=== PATIENT | male | born 1985 | race African-American/Black ===

== ENCOUNTER 2016-08-15 13:12 | Emergency (ER) | payer OTHER ==
[~2016-08-15] VITALS: Ht 177.8 cm; Wt 90.7 kg
[~2016-08-15 13:12] MED LIST: KEPPRA XR500 MG PO; PERCOCET 5/3251 TAB PO; TOPROL XL50 MG PO; TYLENOL325 M2 PO; ZESTRIL20 MG PO
--- NOTE | 2016-08-15 13:12 | NUR ---
Patient was BIBA and taken to bed 04.
[2016-08-15 13:14] VITALS: BP 126/79
--- NOTE | 2016-08-15 13:14 | NUR ---
31M BIBA C/O MID-CHEST PAIN, SHARP/STABBING, RADIATES TO LEFT CHEST, RT ABDOMEN, AND BACK X 4 HOURS TODAY; PT C/O NAUSEA, ABDOMEN SOFT, TENDER TO TOUCH, ACTIVE BOWEL SOUNDS X4 QUADRANTS; PT DENIES V/D AT THIS TIME; A&OX4, BL LUNG SOUNDS CLEAR, RR EVEN/UNLABORED, SKIN IS WARM/DRY/INTACT AT THIS TIME; PT NOTED W/ HEALED SCARS TO MID-ABDOMEN FROM COLON SURGERY/RT ABDOMEN FROM GALLBLADDER REMOVAL; STEADY GAIT. PT PLACED IN GOWN & ON MONITOR, RESTING IN BED W/ HOB ELEVATED AND IN LOWEST POSITION; ER MD MADE AWARE OF STATUS. WILL CONTINUE TO MONITOR.
[2016-08-15] MEDS ORDERED: ASPIRIN 325 MG TAB PO ONE (13:30)
[2016-08-15] MEDS ORDERED: NITROGLYCERIN 0.4 MG TAB SL ONE (13:30)
[2016-08-15] MEDS ORDERED: MORPHINE SULFATE 4 MG/ML SYR IVP ONE (13:30)
--- NOTE | 2016-08-15 13:50 | NUR ---
X RAY AT BEDSIDE
[2016-08-15] MEDS ORDERED: HYDROmorphone 1 MG/ML AMP IVP ONE (15:05)
--- NOTE | 2016-08-15 16:00 | NUR ---
Patient to CT via [facility].
--- NOTE | 2016-08-15 16:12 | NUR ---
Maddie olson in ED - 08/15/16 at 1616 by MED1 PT TAKEN TO CT VIA COLLEEN ACCOMPANIED BY SENIOR ENGINEERING SPECIALIST
--- NOTE | 2016-08-15 16:19 | NUR ---
PT RETURN FROM CT. IV SITE L AC SWELLING AND PT C/O PAIN 04/07. NOTIFIED DR COLLINS Addendum: 08/15/16 at 1640 by MED1 IV L AC REMOVED,PRESSURE APPLIED TO SITE TO STOP BLEEDING. WILL CONTINUE TO MONITOR
--- NOTE | 2016-08-15 16:19 | NUR ---
Maddie olson in EDM - 08/15/16 at 1621 by MED1 PT RETURN FROM CT. IV SITE L AC SWELLING AND PT C/O PAIN 04/07. NOTIFIED
[2016-08-15] MEDS ORDERED: NACL 0.9% 1,000 ML IV ONE (16:25)
[2016-08-15] MEDS ORDERED: diphenhydrAMINE 50 MG/ML VIAL IVP ONE (16:25)
--- NOTE | 2016-08-15 16:41 | NUR ---
Patient appears to be resting comfortably in bed. Vital Signs within normal limits. Respirations even and unlabored.WILL CONTINUE TO MONITOR
--- NOTE | 2016-08-15 18:38 | NUR ---
ELEVATED L ARM WITH PILLOW/ APPLIED ICE PER ER MD DR. COLLINS ORDER; SWELLING NOTED TO SITE; NO BLEEDING AT THIS TIME; WILL CONTINUE TO MONITOR.
[2016-08-15] MEDS ORDERED: IBUPROFEN 800 MG TAB PO ONE (18:40)
[2016-08-15] MEDS ORDERED: ACETAMINOPHEN EXTRA STRENGTH 500 MG TAB PO ONE (18:40)
--- NOTE | 2016-08-15 19:05 | NUR ---
IV TO RT FA removed, catheter intact and site benign. Applied folded 4x4 gauze and tape to stop bleeding.
[2016-08-15 19:10] VITALS: BP 118/76
--- NOTE | 2016-08-15 19:10 | NUR ---
Patient discharged with v/s stable. Written and verbal after care instructions given and explained. Patient alert, oriented and verbalized understanding of instructions. Ambulatory with steady gait. All questions addressed prior to discharge. ID band removed. Patient advised to follow up with PMD. Rx of TYLENOL EXTRA STRENGTH, TRAMADOL HYDROCHLORIDE & IBUPROFEN given. Patient educated on indication of medication including possible reaction and side effects. Opportunity to ask questions provided and answered.
== END 2016-08-15 19:10 | disposition home or self-care (01) ==
LOC: MED 13:12
DX: R07.89 Other chest pain (principal); R10.11 Right upper quadrant pain; I10 Essential (primary) hypertension
CPT/HCPCS: 36415; 71010; 71275; 80053; 83690; 83880; 84484; 85025; 85610; 85730; 93005; 96361; 96374; 96375; 99285; J1170; J1200; J2270; J7030; Q0092; Q9967

== ENCOUNTER 2016-08-16 10:12 | Emergency (ER) | payer OTHER ==
[~2016-08-16] VITALS: Ht 175.3 cm; Wt 86.2 kg
--- NOTE | 2016-08-16 10:13 | NUR ---
Patient CAROL SULLIVAN, triaged by RN.
[2016-08-16 10:21] VITALS: BP 132/86
--- NOTE | 2016-08-16 10:27 | NUR ---
TO LOBBY PER ERMD
--- NOTE | 2016-08-16 10:56 | NUR ---
Patient ambulated to bed 8. RN evaluating patient at bedside.
[2016-08-16] MEDS ORDERED: NACL 0.9% 1,000 ML IV SCH (10:58)
--- NOTE | 2016-08-16 10:58 | NUR ---
Dr. King evaluating patient at bedside.
[2016-08-16] MEDS ORDERED: ONDANSETRON 4 MG/2 ML VIAL IVP ONE (11:00)
--- NOTE | 2016-08-16 11:00 | NUR ---
PER PATIENT HAVE BP SHUNT RT.SIDE HEAD DUE TO HYDROCEPHALUS A CHILD,LT. ARM PAIN/SWELLING IV SITE FROM YESTERDAY.CT.ABD. WITH CONTRAST DONE YESTERDAY; DENIES N/V/D; SKIN IS PINK/WARM/DRY; AAOX4 WITH EVEN AND STEADY GAIT; LUNGS CLEAR BL; HR EVEN AND REGULAR; PT DENIES ANY FEVER, CP, SOB, OR COUGH AT THIS TIME; PATIENT STATES PAIN OF 8/10 AT THIS TIME; VSS; PATIENT POSITIONED FOR COMFORT; HOB ELEVATED; BEDRAILS UP X2; BED DOWN. ER MD MADE AWARE OF PT STATUS.
[2016-08-16] MEDS ORDERED: MORPHINE SULFATE 4 MG/ML SYR ONE (11:47)
[2016-08-16] MEDS ORDERED: MORPHINE SULFATE 4 MG/ML SYR IVP ONE (11:50)
--- NOTE | 2016-08-16 12:06 | NUR ---
AAO, COOPERATIVE PATIENT BEING TRANSPORTED TO CT VIA GURNEY BY SAIDA AREVALO
--- NOTE | 2016-08-16 12:30 | NUR ---
AAO PT STILL C/O HEAD ACHE 02/05 DR MCADAMS NOTIFIED
[2016-08-16] MEDS ORDERED: HYDROmorphone 1 MG/ML AMP IVP ONE (12:35)
--- NOTE | 2016-08-16 14:23 | NUR ---
DR MCADAMS NOTIFIED OF PT C/O PAIN 02/05 ASKING AWAITING ORDERS
--- NOTE | 2016-08-16 14:56 | NUR ---
PT C/O HEADACHE 02/05, DR MCADAMS NOTIFIED, HAVE TO WAIT PER DR MCADAMS, AAO PT NOTIFIED
[2016-08-16 15:42] VITALS: BP 137/65
--- NOTE | 2016-08-16 15:42 | NUR ---
Patient discharged with v/s stable. Written and verbal after care instructions given and explained. Patient alert, oriented and verbalized understanding of instructions. Ambulatory with steady gait. All questions addressed prior to discharge. ID band removed. Patient advised to follow up with PMD. Rx of NORCO, KEFLEX given. Patient educated on indication of medication including possible reaction and side effects. Opportunity to ask questions provided and answered.
== END 2016-08-16 15:42 | disposition home or self-care (01) ==
LOC: MED 10:12
PROC: BW28ZZZ Computerized Tomography (CT Scan) of Head (ICD-10-PCS; principal; 2016-08-16)
PROC: 3E033GC Introduction of Other Therapeutic Substance into Peripheral Vein, Percutaneous Approach (ICD-10-PCS; principal; 2016-08-16)
DX: R51 Headache (principal); I80.8 Phlebitis and thrombophlebitis of other sites; I10 Essential (primary) hypertension; Q03.9 Congenital hydrocephalus, unspecified; Z98.2 Presence of cerebrospinal fluid drainage device
CPT/HCPCS: 36415; 70450; 80053; 81001; 85025; 96361; 96374; 96375; 99285; J1170; J2270; J2405; J7030

== ENCOUNTER 2016-08-21 17:46 | Emergency (ER) | payer OTHER ==
[~2016-08-21] VITALS: Ht 172.7 cm; Wt 86.2 kg
--- NOTE | 2016-08-21 17:46 | NUR ---
Patient BIBA and taken to bed 02 via gurney per EMS.
--- NOTE | 2016-08-21 17:50 | NUR ---
Dr. Gillespie evaluating patient at bedside.
[2016-08-21 17:53] VITALS: BP 147/97
[2016-08-21] MEDS ORDERED: levETIRAcetam 500 MG TAB PO ONE (18:00)
--- NOTE | 2016-08-21 18:00 | NUR ---
PT BIBA FOR EVALUATION OF ABDOMINAL PAIN X1 HOUR. PT ALSO STATES HE FEELS A SEIZURE AURA. HX SEIZURE DISORDER, HTN, ANXIETY. DENIES N/V/D; SKIN IS PINK/WARM/DRY; AAOX4 WITH EVEN AND STEADY GAIT; LUNGS CLEAR BL; HR EVEN AND REGULAR; PT DENIES ANY FEVER, CP, SOB, OR COUGH AT THIS TIME; PATIENT STATES PAIN OF 7/10 AT THIS TIME; VSS; PATIENT POSITIONED FOR COMFORT; HOB ELEVATED; BEDRAILS UP X2; BED DOWN. ER MD MADE AWARE OF PT STATUS.
[2016-08-21] MEDS ORDERED: ALUMINUM HYD/MAG/SIMETHICONE 30 ML, BELLADONNA/PHENOBARBITAL 10 ML, LIDOCAINE VISCOUS 2... PO ONE (18:50)
--- NOTE | 2016-08-21 19:13 | NUR ---
REPORT GIVEN TO CORRIE REID, LEANNE PT STILL C/O PAIN
[2016-08-21 19:28] VITALS: BP 130/82
--- NOTE | 2016-08-21 19:28 | NUR ---
Patient discharged with v/s stable. Written and verbal after care instructions given and explained. Patient alert, oriented and verbalized understanding of instructions. Ambulatory with steady gait. All questions addressed prior to discharge. ID band removed. Patient advised to follow up with PMD. Rx of PROTONIX 40 MG, ZOFRAN ODT 4 MG given. Patient educated on indication of medication including possible reaction and side effects. Opportunity to ask questions provided and answered.
== END 2016-08-21 19:28 | disposition home or self-care (01) ==
LOC: MED 17:46
DX: R10.11 Right upper quadrant pain (principal); R11.2 Nausea with vomiting, unspecified; R42 Dizziness and giddiness; I10 Essential (primary) hypertension

== ENCOUNTER 2016-09-15 17:55 | Emergency (ER) | payer OTHER ==
[~2016-09-15] VITALS: Ht 175.3 cm; Wt 89.4 kg
[~2016-09-15 17:55] MED LIST changes: +ACET-2619 PO; -KEPPRA XR500 MG PO; +LEVE500T9 PO; +LISI-420 PO; +METO50TE2 PO; -PERCOCET 5/3251 TAB PO; -TOPROL XL50 MG PO; -TYLENOL325 M2 PO; -ZESTRIL20 MG PO
[2016-09-15 18:08] VITALS: BP 129/107
--- NOTE | 2016-09-15 20:10 | NUR ---
PT TAKEN TO BED 4
--- NOTE | 2016-09-15 20:15 | NUR ---
PATIENT PRESENTS TO ED WITH BL UPPER ABD PAIN . PT STATES HE PAIN CURRENTLY RADIATES TO CHEST AND DOWN LEFT ARM WHERE HE FEELS A "TINGLING SENSATION". PT REPORTS HE HAS VOMITED 6 TIMES TODAY AND HAS A DECREASE IN APPETITE . DENIES DIARRHEA; SKIN IS PINK/WARM/DRY; AAOX4 WITH EVEN AND STEADY GAIT; LUNGS CLEAR BL; HR EVEN AND REGULAR; PT DENIES ANY FEVER, SOB, OR COUGH AT THIS TIME; PATIENT STATES PAIN OF 7/10 AT THIS TIME; VSS; PATIENT POSITIONED FOR COMFORT; HOB ELEVATED; BEDRAILS UP X2; BED DOWN. ER MD MADE AWARE OF PT STATUS.
[2016-09-15] MEDS ORDERED: ALUMINUM HYD/MAG/SIMETHICONE 30 ML, BELLADONNA/PHENOBARBITAL 10 ML, LIDOCAINE VISCOUS 2... PO ONE ×3 (20:25)
[2016-09-15 20:45] LABS: BASOPHILS # (AUTO) 0.1 K/uL (0.00-0.22); BASOPHILS % (AUTO) 2.3 % (0.0-2.0); EOSINOPHILS # (AUTO) 0.2 K/uL (0-0.4); EOSINOPHILS % (AUTO) 8.2 % (0.0-4.0); HEMATOCRIT 35.7 % (36-52); HEMOGLOBIN 11.4 g/dL (12.0-18.0); LYMPHOCYTES # (AUTO) 1.1 K/uL (2.0-11.5); LYMPHOCYTES % (AUTO) 43.4 % (20.5-51.1); MEAN CORPUSCULAR HEMOGLOBIN 27 pg (27-31); MEAN CORPUSCULAR HGB CONC 32 g/dL (33-37); MEAN CORPUSCULAR VOLUME 83 fL (80-94); MONOCYTES # (AUTO) 0.2 K/uL (0.8-1.0); MONOCYTES % (AUTO) 9.8 % (1.7-9.3); NEUTROPHILS # (AUTO) 0.9 K/uL (1.8-7.7); NEUTROPHILS % (AUTO) 36.3 % (42.2-75.2); PLATELET COUNT (AUTO) 280 K/uL (140-450); RED BLOOD CELL COUNT(AUTO) 4.29 MIL/uL (4.20-6.10); RED CELL DISTRIBUTION WIDTH 12.5 % (11.6-13.7); WHITE BLOOD COUNT (AUTO) 2.5 K/uL (4.8-10.8)
[2016-09-15 21:02] LABS: ANION GAP 10.8 (8-16); CALCIUM 8.2 mg/dL (8.5-10.1); CARBON DIOXIDE 29.2 mmol/L (21-32); CREATININE 1.1 mg/dL (0.6-1.3)
[2016-09-15 21:06] LABS: ALBUMIN 3.7 g/dL (3.4-5.0); TOTAL BILIRUBIN 0.3 mg/dL (0.0-1.0); TOTAL PROTEIN, SERUM 6.7 g/dL (6.4-8.2)
[2016-09-15 21:27] VITALS: BP 135/74
--- NOTE | 2016-09-15 21:27 | NUR ---
Patient discharged with v/s stable. Written and verbal after care instructions given and explained. Patient alert, oriented and verbalized understanding of instructions. Ambulatory with steady gait. All questions addressed prior to discharge. ID band removed. Patient advised to follow up with PMD. Rx of Mylanta given. Patient educated on indication of medication including possible reaction and side effects. Opportunity to ask questions provided and answered.
== END 2016-09-15 21:27 | disposition home or self-care (01) ==
LOC: MED 17:55
DX: R10.10 Upper abdominal pain, unspecified (principal); J45.909 Unspecified asthma, uncomplicated; I10 Essential (primary) hypertension; J44.9 Chronic obstructive pulmonary disease, unspecified; Z90.49 Acquired absence of other specified parts of digestive tract
CPT/HCPCS: 36415; 80053; 83690; 84484; 85025; 93005; 99285

== ENCOUNTER 2016-09-27 22:42 | Emergency (ER) | payer OTHER ==
[~2016-09-27] VITALS: Ht 175.3 cm; Wt 86.2 kg
[~2016-09-27 22:42] MED LIST changes: -ACET-2619 PO; +KEPPRA XR500 MG PO; -LEVE500T9 PO; -LISI-420 PO; -METO50TE2 PO; +PERCOCET 5/3251 TAB PO; +TOPROL XL50 MG PO; +TYLENOL325 M2 PO; +ZESTRIL20 MG PO
--- NOTE | 2016-09-27 22:42 | NUR ---
Patient was BIBA at this time.
[2016-09-27 22:45] VITALS: BP 174/110
--- NOTE | 2016-09-27 22:45 | NUR ---
Patient taken to lobby.
--- NOTE | 2016-09-28 02:40 | NUR ---
Dr. Irving evaluating patient at bedside.
--- NOTE | 2016-09-28 02:40 | NUR ---
BIBA C/O ABD PAIN,STARTED 4 HOURS AGO AND N/V DIARRHEA SINCE LAST NIGHT AND HEADACHE, NOW.PATIENT ALERT AWAKE ORIENTED, ZOFRAN4 MG IVP WAS GIVEN ENROUTE SKIN IS PINK/WARM/DRY; AAOX4 WITH EVEN AND STEADY GAIT; LUNGS CLEAR BL; HR EVEN AND REGULAR; PT DENIES ANY FEVER, CP, SOB, OR COUGH AT THIS TIME; PATIENT STATES PAIN OF 6/10 AT THIS TIME; VSS; PATIENT POSITIONED FOR COMFORT; HOB ELEVATED; BEDRAILS UP X2; BED DOWN. ER MD MADE AWARE OF PT STATUS.
--- NOTE | 2016-09-28 02:40 | NUR ---
Patient ambulated to bed 04.
[2016-09-28] MEDS ORDERED: DIPHENOXYLATE /ATROPINE 2.5 MG TAB PO ONE (02:45)
[2016-09-28] MEDS ORDERED: ONDANSETRON 4 MG ODT PO ONE (02:45)
[2016-09-28 05:20] VITALS: BP 136/80
--- NOTE | 2016-09-28 05:20 | NUR ---
Patient discharged with v/s stable. Written and verbal after care instructions given and explained. Patient alert, oriented and verbalized understanding of instructions. Ambulatory with steady gait. All questions addressed prior to discharge. ID band removed. Patient advised to follow up with PMD. Rx of LOMITIL AND ZOFRAN given. Patient educated on indication of medication including possible reaction and side effects. Opportunity to ask questions provided and answered.
== END 2016-09-28 05:20 | disposition home or self-care (01) ==
LOC: MED 22:42
DX: G89.29 Other chronic pain (principal); R10.9 Unspecified abdominal pain; R11.2 Nausea with vomiting, unspecified; R19.7 Diarrhea, unspecified; I10 Essential (primary) hypertension; D72.819 Decreased white blood cell count, unspecified; G40.909 Epilepsy, unspecified, not intractable, without status epilepticus; Z98.2 Presence of cerebrospinal fluid drainage device; Z90.49 Acquired absence of other specified parts of digestive tract; Z98.890 Other specified postprocedural states
CPT/HCPCS: 36415; 80053; 81001; 83690; 85025; 99284; S0119

== ENCOUNTER 2016-12-02 04:40 | Emergency (ER) | payer OTHER ==
[~2016-12-02] VITALS: Ht 175.3 cm; Wt 88.5 kg
[~2016-12-02 04:40] MED LIST changes: +ACET-2619 PO; -KEPPRA XR500 MG PO; +LEVE500T9 PO; +LISI-420 PO; +METO50TE2 PO; -PERCOCET 5/3251 TAB PO; -TOPROL XL50 MG PO; -TYLENOL325 M2 PO; -ZESTRIL20 MG PO
[2016-12-02 04:48] VITALS: BP 163/93
--- NOTE | 2016-12-02 04:53 | NUR ---
Patient being evaluated by physician at [facility].
[2016-12-02 05:29] LABS: ANION GAP 12.3 (8-16); CALCIUM 8.7 mg/dL (8.5-10.1); CARBON DIOXIDE 28.1 mmol/L (21-32); CREATININE 1.2 mg/dL (0.6-1.3); POTASSIUM 4.4 mmol/L (3.5-5.1)
--- NOTE | 2016-12-02 06:00 | NUR ---
Unable to find pt to give d/c instructions. Pt left prior to d/c instructions.
== END 2016-12-02 06:00 | disposition left against medical advice (07) ==
LOC: MED 04:40
DX: R51 Headache (principal); I10 Essential (primary) hypertension; J45.909 Unspecified asthma, uncomplicated; Z98.2 Presence of cerebrospinal fluid drainage device; Z79.899 Other long term (current) drug therapy
CPT/HCPCS: 36415; 70450; 80048; 99285

== ENCOUNTER 2020-04-15 10:22 | Emergency (ER) | payer OTHER ==
[~2020-04-15] VITALS: Ht 172.7 cm; Wt 102.1 kg
[2020-04-15 10:24] VITALS: BP 171/106
[2020-04-15] MEDS ORDERED: NACL 0.9% 500 ML IV SCH (10:40)
[2020-04-15] MEDS ORDERED: MORPHINE SULFATE 2 MG/ML SYR IVP ONE (10:40)
[2020-04-15] MEDS ORDERED: ONDANSETRON 4 MG/2 ML VIAL IVP ONE (10:40)
--- NOTE | 2020-04-15 10:40 | NUR ---
35 YEAR OLD MALE COMPLAINS OF ABDOMINAL PAIN X 2 DAYS. PT DENIES NAUSEA, VOMITTING, BUT STATES HE HAS BEEN HAVING DIARRHEA. PT DENIES BLOOD IN STOOL. PT AOX4, BREATHING EVEN AND UNLABORED, SKIN WARM AND DRY. BED IN LOWEST POSITION, LOCKED, BED RAIL UPX1. PMH - Asthma, Hypertension, Seizures ALLERGIES - NKA
--- NOTE | 2020-04-15 11:13 | NUR ---
IV STARTED TO L HAND, UNABLE TO DRAW LABS. PER LAB, THERE ARE NO PHLEBS AVAILABLE AT THIS TIME. INFORMED ALEJANDRO BECERRA SUP.
[2020-04-15] MEDS ORDERED: diphenhydrAMINE 50 MG/ML VIAL IVP ONE (11:20)
--- NOTE | 2020-04-15 11:22 | NUR ---
PT HAND STARTED TO SWELL AFTER MORPHINE, STATES NO SOB. WILL CONTINUE TO MONITOR, ERMD MADE AWARE
[2020-04-15 11:43] LABS: BASOPHILS % (AUTO) 0.6 % (0.0-2.0); EOSINOPHILS % (AUTO) 1.4 % (0.0-4.0); HEMATOCRIT 37.8 % (36-52); HEMOGLOBIN 12.3 g/dL (12.0-18.0); LYMPHOCYTES # (AUTO) 0.8 K/uL (2.0-11.5); LYMPHOCYTES % (AUTO) 32.4 % (20.5-51.1); MEAN CORPUSCULAR HEMOGLOBIN 27 pg (27-31); MEAN CORPUSCULAR HGB CONC 33 g/dL (33-37); MEAN CORPUSCULAR VOLUME 82.6 fL (80-94); MONOCYTES # (AUTO) 0.3 K/uL (0.8-1.0); MONOCYTES % (AUTO) 11.1 % (1.7-9.3); NEUTROPHILS # (AUTO) 1.3 K/uL (1.8-7.7); NEUTROPHILS % (AUTO) 54.5 % (42.2-75.2); PLATELET COUNT (AUTO) 264 K/uL (140-450); RED BLOOD CELL COUNT(AUTO) 4.58 MIL/uL (4.20-6.10); WHITE BLOOD COUNT (AUTO) 2.4 K/uL (4.8-10.8)
--- NOTE | 2020-04-15 11:50 | NUR ---
PT STATES HE STILL HAS 10/10 PAIN, ERMD MADE AWARE
[2020-04-15 12:04] LABS: PROTHROMBIN TIME 10.4 secs (10.8-13.4)
[2020-04-15 12:06] LABS: ALBUMIN 3.6 g/dL (3.4-5.0); ANION GAP 15.2 (8-16); CARBON DIOXIDE 23.8 mmol/L (21-32); CREATININE 1.1 mg/dL (0.6-1.3); TOTAL BILIRUBIN 0.3 mg/dL (0.0-1.0)
--- NOTE | 2020-04-15 12:08 | NUR ---
QUYNHD MADE AWARE PT HAS ALOT OF PAIN
[2020-04-15] MEDS ORDERED: HYDROcodone/APAP 5/325 MG 1 TAB TAB PO ONE (12:10)
[2020-04-15 12:16] LABS: APPEARANCE,URINE CLEAR (CLEAR); BILIRUBIN,URINE NEGATIVE (NEGATIVE); BLOOD, URINE NEGATIVE (NEGATIVE); COLOR,URINE YELLOW (YELLOW); LEUKOCYTE ESTERASE ,URINE NEGATIVE (NEGATIVE); NITRITE, URINE NEGATIVE (NEGATIVE); UGLUCOSE NEGATIVE (NEGATIVE)
[2020-04-15 12:45] LABS: RBC,URINE 0-5 /HPF (0-5); WBC,URINE 0-5 /HPF (0-5)
--- NOTE | 2020-04-15 13:30 | NUR ---
Patient discharged with v/s stable. Written and verbal after care instructions about abdominal pain given and explained. Patient alert, oriented and verbalized understanding of instructions. Ambulatory with steady gait. All questions addressed prior to discharge. ID band removed. Patient advised to follow up with PMD. Rx of zofran given. Patient educated on indication of medication including possible reaction and side effects. Opportunity to ask questions provided and answered.
[2020-04-15 13:32] VITALS: BP 140/75
--- NOTE | 2020-04-17 03:04 | NUR ---
late entry--- spoke with Damian Snyder regarding medication end time, as follows: 04/15/20 sodium chloride 0.9%, end time: 1221
== END 2020-04-15 13:32 | disposition home or self-care (01) ==
LOC: MED 10:22
DX: R10.32 Left lower quadrant pain (principal); R19.7 Diarrhea, unspecified; R11.2 Nausea with vomiting, unspecified; M54.9 Dorsalgia, unspecified; J45.909 Unspecified asthma, uncomplicated; I10 Essential (primary) hypertension; Z90.49 Acquired absence of other specified parts of digestive tract; Z98.890 Other specified postprocedural states; Z79.899 Other long term (current) drug therapy; Z88.5 Allergy status to narcotic agent
CPT/HCPCS: 36415; 71045; 74176; 80053; 81001; 83605; 83690; 85025; 85610; 85730; 87040; 96361; 96374; 96375; 99285; J1200; J2270; J2405; Q0092; J7030